=== PATIENT | male | born 1990 | race Two or more races ===

== ENCOUNTER 2025-09-13 14:18 | Emergency (ER) | payer MEDICAID, MEDICARE ==
[~2025-09-13] VITALS: Ht 175.3 cm; Wt 104.6 kg
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
[2025-09-13 16:31] VITALS: BP 125/92; PULSE 95; RESP 16; TEMP 99.2; O2SAT 98
[2025-09-13] MEDS ORDERED: IBU600T PO (16:56)
== END 2025-09-13 17:09 | disposition home or self-care (01) ==
LOC: ER 14:18
DX: S20.219A Contusion of unspecified front wall of thorax, initial encounter (principal); Z88.8 Allergy status to other drugs, medicaments and biological substances; V89.2XXA Person injured in unspecified motor-vehicle accident, traffic, initial encounter; Y93.I9 Activity, other involving external motion; Y92.488 Other paved roadways as the place of occurrence of the external cause; Y99.8 Other external cause status